=== PATIENT | female | born 1965 | race Caucasian/White ===

== ENCOUNTER 2017-03-19 22:03 | Emergency (ER) | payer OTHER ==
[~2017-03-19 22:03] MED LIST: Iopamidol 370 76% 100 ML VIAL ONE
[2017-03-19] MEDS ORDERED: Ondansetron ODT 4 MG TAB ONE (22:44)
[2017-03-19] MEDS ORDERED: Albuterol Sulfate 2.5 mg/0.5 ml Neb ONE (22:48)
[2017-03-19] MEDS ORDERED: HYDROcodone/Acetaminophen 5/325 mg Tablet ONE (23:14)
--- NOTE | 2017-03-19 23:24 | RAD ---
PA AND LATERAL VIEWS OF THE CHEST 03/19/17 HISTORY: Cough, shortness of breath. FINDINGS: The heart size is normal. The lungs are expanded without focal areas of consolidation, pneumothorax o r pleural effusions. There is increased right paraspinal lucency in the lower chest which may be air in a distended esopha reji or pneumomediastinum. Further evaluation with CT scan is recommended. POS: [facility]
[2017-03-20] MEDS ORDERED: Albuterol Sulfate 2.5 mg/0.5 ml Neb ONE (00:58)
[2017-03-20 01:13] LABS: Anion Gap 16 mmol/L (10-20); Calc. Creatinine Clearance 0 mL/min (70-130); Calcium 9.5 mg/dL (7.8-10.44); Carbon Dioxide 25 mmol/L (22-29); Chloride 103 mmol/L (98-107); Estimated GFR-MDRD 70; Glucose 137 mg/dL (70-105); Potassium 3.5 mmol/L (3.5-5.1); Sodium 140 mmol/L (136-145)
[2017-03-20 01:25] LABS: BUN (Urea Nitrogen) 12 mg/dL (7.0-18.7)
--- NOTE | 2017-03-20 09:33 | CT ---
PRELIMINARY REPORT/[facility]/EMERGENCY AFTER HOURS PROCEDURE: EXAM: CT Chest With Intravenous Contrast CLINICAL HISTORY: 51 years old, female; Signs and symptoms; Cough and fever; Symptoms not specified; Patient HX: Flu, c ough, fever, abnormal cxr; Additional info: unable to send xray images, however xray report was faxed TECHNIQUE: Axial computed tomography images of the chest with intravenous contrast. All CT scans at this facilit y use one or more dose reduction techniques, viz.: automated exposure control; ma/kV adjustment per p atient size (including targeted exams where dose is matched to indication; i.e. head); or iterative r econstruction technique. Coronal reformatted images were created and reviewed. CONTRAST: 90 mL of [id number] administered intravenously. COMPARISON: No relevant prior studies available. FINDINGS: Lungs: There is a small airspace opacity of the right middle lobe. There is linear-like opacity of th e left lower lobe. These are probably atelectasis. Cannot exclude pneumonia. Pleural space: Unremarkable. No pneumothorax. No significant effusion. Heart: Unremarkable. No cardiomegaly. No significant pericardial effusion. Bones/joints: Unremarkable. No acute fracture. No dislocation. Soft tissues: Unremarkable. Vasculature: Unremarkable. No thoracic aortic aneurysm. Lymph nodes: Unremarkable. No enlarged lymph nodes. IMPRESSION: Air space opacity of the right middle lobe and linear-like opacity of the left lower lobe. Cannot exc lude pneumonia. Thank you for allowing us to participate in the care of your patient. Dictated and Authenticated by: Kylah Guzmán DO 03/20/2017 1:25 AM Central Time ([place] & [place]) FINAL REPORT EMERGENT AFTER HOURS CT OF THE CHEST WITH CONTRAST: FINDINGS/IMPRESSION: I agree with the findings and impression given in the preliminary report per [facility] physician. There is airspace opacity in the right middle lobe and left lower lobe. This may represent atelectasis or infiltrate. POS: [facility]
== END 2017-03-20 01:45 | disposition home or self-care (01) ==
LOC: SCSER 22:03
DX: J45.909 Unspecified asthma, uncomplicated (principal); J98.11 Atelectasis; R11.2 Nausea with vomiting, unspecified; F32.9 Major depressive disorder, single episode, unspecified; E78.00 Pure hypercholesterolemia, unspecified
CPT/HCPCS: 71046; 71260; 80048; 94640; J7611; Q0162

== ENCOUNTER 2017-03-22 03:09 | Emergency (ER) | payer OTHER ==
[2017-03-22] MEDS ORDERED: Metoclopramide HCl 10 MG/2 ML VIAL ONE (03:38)
[2017-03-22] MEDS ORDERED: Ketorolac Tromethamine 30 MG/ML VIAL ONE (03:38)
[2017-03-22] MEDS ORDERED: diphenhydrAMINE 50 MG/ML VIAL ONE ×2 (03:38→05:31)
[2017-03-22] MEDS ORDERED: methylPREDNISolone Sod Succ/PF 125 MG/2 ML VIAL ONE (03:38)
[2017-03-22] MEDS ORDERED: Magnesium Sulfate 2 GM/NS 0.9% 50 ML BAG ONE (05:31)
== END 2017-03-22 06:55 | disposition home or self-care (01) ==
LOC: SCSER 03:09
DX: R51 Headache (principal); J45.909 Unspecified asthma, uncomplicated; F32.9 Major depressive disorder, single episode, unspecified; Z79.899 Other long term (current) drug therapy
CPT/HCPCS: 96365; 96366; 96367; 96375; 96376; J1200; J1885; J2765; J2930; J3475

== ENCOUNTER 2017-12-08 14:34 | Outpatient (CLI) | payer OTHER ==
[2017-12-08 15:14] LABS: Bilirubin Negative (Negative); Blood, Urine Moderate (Negative); Clarity Cloudy (Clear); Glucose, Urine (Dipstick) Negative (Negative); Leukocyte Negative (Negative); Nitrite Negative (Negative); Protein, Urine (Dipstick) Negative (Neg-Trace); Urobilinogen 0.2 mg/dL (0.2-1.0); pH, Urine 5.5 (5.0-9.0)
[2017-12-08 15:15] LABS: Anion Gap 12 mmol/L (10-20); BUN (Urea Nitrogen) 13 mg/dL (9.8-20.1); Calc. Creatinine Clearance 0 mL/min (70-130); Calcium 9.1 mg/dL (7.8-10.44); Carbon Dioxide 26 mmol/L (22-29); Chloride 102 mmol/L (98-107); Estimated GFR-MDRD 71; Glucose 85 mg/dL (70-105); Potassium 4.5 mmol/L (3.5-5.1); Sodium 135 mmol/L (136-145)
[2017-12-08 15:35] LABS: Specific Gravity, Urine 1.024 (1.002-1.036)
[2017-12-08 15:38] LABS: Bacteria/HPF 1+ HPF (None Seen); RBC/HPF 0-3 HPF (0-3); WBC/HPF 0-3 HPF (0-3)
--- NOTE | 2017-12-08 17:56 | MMO ---
BILATERAL SCREENING MAMMOGRAM: 12/08/17 COMPARISON: 11/20/15, 12/30/10 HISTORY: 52-year-old female. Routine screening mammography. TECHNIQUE: CC and MLO views of both breasts are submitted for interpretation. This patient's mammogram is reviewed with the assistance of computer hardware developer detection. FINDINGS: The breasts are composed of heterogeneously dense fibroglandular tissue. This limits the sensitivity of mammography and the detection of underlying malignancy. Bilaterally, no suspicious dominant mass, architectural distortion or suspicious calcification. Bilat eral benign appearing calcifications are noted. IMPRESSION: BIRADS 2: Benign Finding(s) RECOMMENDATION: Routine annual screening mammography (for women over age 40). POS: [facility]
== END 2017-12-08 14:35 | disposition home or self-care (01) ==
LOC: SCSMAMMO 14:34
PROVIDERS: ATTEND Internal Medicine
DX: Z12.31 Encounter for screening mammogram for malignant neoplasm of breast (principal); R31.29 Other microscopic hematuria
CPT/HCPCS: 36415; 77067; 80048; 81001

== ENCOUNTER 2018-08-02 00:47 | Emergency (ER) | payer OTHER ==
--- NOTE | 2018-08-02 08:06 | RAD ---
RIGHT KNEE 4 VIEWS: HISTORY: Injury, right knee pain. FINDINGS/IMPRESSION: No acute fracture or dislocation is seen. There is soft tissue swelling in the suprapatellar pouch s uspicious for a joint effusion. POS: [facility]
== END 2018-08-02 01:33 | disposition home or self-care (01) ==
LOC: ERS 00:47
DX: M25.561 Pain in right knee (principal); E78.00 Pure hypercholesterolemia, unspecified; J45.909 Unspecified asthma, uncomplicated; F32.9 Major depressive disorder, single episode, unspecified

== ENCOUNTER 2018-08-23 01:42 | Emergency (ER) | payer OTHER ==
--- NOTE | 2018-08-23 09:24 | RAD ---
FOUR VIEWS RIGHT KNEE: COMPARISON: 08/02/2018.. HISTORY: Right knee pain after falling. FINDINGS: Four views right knee show no evidence of acute fracture or dislocation. No knee effusion is seen. No significant degenerative changes are seen. IMPRESSION: Unremarkable exam. POS: [facility]
--- NOTE | 2018-08-23 09:26 | RAD ---
THREE VIEWS RIGHT ANKLE: HISTORY: Fall with right ankle pain. FINDINGS: Three views right ankle show no evidence of acute fracture or dislocation. Mild soft tissue swelling is seen. No degenerative changes are present. IMPRESSION: No evidence of acute osseous abnormality. POS: [facility]
== END 2018-08-23 02:25 | disposition home or self-care (01) ==
LOC: ERS 01:42
DX: M25.561 Pain in right knee (principal); E78.00 Pure hypercholesterolemia, unspecified; J45.909 Unspecified asthma, uncomplicated; F32.9 Major depressive disorder, single episode, unspecified; Z79.899 Other long term (current) drug therapy; W19.XXXA Unspecified fall, initial encounter

== ENCOUNTER 2019-03-24 15:39 | Observation (INO) | payer BC ==
--- NOTE | 2019-03-24 16:18 | RAD ---
XR Chest 1 View Portable HISTORY: Syncope COMPARISON: None FINDINGS: The heart size is normal. The lungs are well expanded without focal areas of consolidation, pneumothorax or pleural effusions. IMPRESSION: No radiographic evidence of acute cardiopulmonary process.
[2019-03-24 16:24] LABS: #Basophils 0.1 thou/uL (0.0-0.2); #Eosinphils 0.9 thou/uL (0.0-0.7); #Lymphocytes 2.6 thou/uL (1.20-3.40); #Monocytes 0.7 thou/uL (0.11-0.59); #Neutrophils 6.9 thou/uL (1.40-6.50); %Basophils 1.1 % (0.0-1.0); %Eosinophils 8.1 % (0.0-10.0); %Monocytes 6.2 % (0.0-10.0); %Neutrophils 61.5 % (42.0-75.0); Hemoglobin 13.6 g/dL (12.0-16.0); Mean Corpuscular HGB CONC 32.5 g/dL (32.0-36.0); Mean Corpuscular Volume 89.4 fL (78.0-98.0); Mean Platelet Volume 8.9 fL (7.4-10.4); Platelet Count 278 thou/uL (130-400); RBC Distribution Width 14.4 % (11.5-14.5); Red Blood Cell (RBC) Count 4.68 mill/uL (4.20-5.40); White Blood Cell (WBC) Count 11.2 thou/uL (4.8-10.8)
--- NOTE | 2019-03-24 16:26 | CT ---
CT BRAIN WITHOUT CONTRAST: HISTORY: Altered mental status FINDINGS: No evidence of acute infarct, hemorrhage, midline shift or abnormal extra-axial fluid collections is seen. The ventricular size is appropriate and the basilar cisterns are patent. The bony calvarium is intact. The visualized paranasal sinuses and mastoid air cells are well aerated. IMPRESSION: No CT evidence of acute intracranial process.
[2019-03-24 16:49] LABS: ALT (SGPT) 12 U/L (8-55); AST (SGOT) 17 U/L (5-34); Albumin 4.2 g/dL (3.5-5.0); Alkaline Phosphatase 102 U/L (40-110); Anion Gap 12 mmol/L (10-20); BUN (Urea Nitrogen) 9 mg/dL (9.8-20.1); Bilirubin, Total 0.4 mg/dL (0.2-1.2); Calc. Creatinine Clearance 0 mL/min (70-130); Carbon Dioxide 25 mmol/L (22-29); Chloride 105 mmol/L (98-107); Estimated GFR-MDRD 68; Globulin 2.5 g/dL (2.4-3.5); Glucose 92 mg/dL (70-105); Protein, Total 6.7 g/dL (6.0-8.3); Sodium 138 mmol/L (136-145)
[2019-03-24 17:21] LABS: Bilirubin Negative (Negative); Blood, Urine Negative (Negative); Clarity Clear (Clear); Glucose, Urine (Dipstick) Normal (Negative); Leukocyte Negative Leu/uL (Negative); Nitrite Negative (Negative); Protein, Urine (Dipstick) Negative (Neg-Trace); Urobilinogen Normal mg/dL (Less than 2)
[2019-03-24 17:26] LABS: Amphetamine Not Detected (NotDetected); Barbiturates Screen Not Detected (NotDetected); Benzodiazepine Screen Detected (NotDetected); Cocaine Metabolite Screen Not Detected (NotDetected); Medtox Control Line Valid? VALID (VALID); Medtox Reader # READER 4; Methadone Not Detected (NotDetected); Methamphetamine Not Detected (NotDetected); Opiate Screen Not Detected (NotDetected); Oxycodone Screen Not Detected (NotDetected); Phencyclidine (PCP) Not Detected (NotDetected); THC/Cannabinoid Screen Not Detected (NotDetected); Tricyclic Screen Detected (NotDetected)
[2019-03-24] MEDS ORDERED: Albuterol Sulfate 2.5 mg/3 ml Neb ONE (19:53)
--- NOTE | 2019-03-24 19:57 | PDOC.HHP ---
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 No prodrome. Was sitting. Denies palpitations, chest pain, shortness of breath, bowel/ bladder incontinence, witnessed episode but unreliable source was witness (her patient) and no epileptiform activity reported, length of episode unknown. Denies new meds but med list reviewed and on temazepam for sleep, no recent additions of meds or dose changes, denies drug use, recently took up smoking 3 months ago and cant explain why. She was confused after the episode and still reports not quite back to baseline but very close, confirms this at bedside. Patient saw Dr Griggs of cardiology a long time ago and cannot remember why, byut remembers she had an echo with mild MR. She sees Dr Simons for migraines, no headaches today. She had an MRI 5 years ago and reports nothing highly unusual on that study as far as she is aware. She denies unilateral weakness, numbness, facial droop. EKG NSR, CT head and CXR without acute findings. ED Course: VITAL SIGNS Aida Mar 24, 2019 15:55 ARMANDO Grimes, Coby BP: 113/81, MAP: 91, Pulse: 88, Resp: 22, Temp: 98.6 (Oral), O2 Sat: 92 on ( Room Air) Home meds Effexor TABLET : Strength - 100 mg : ORAL Patient Dose: 150 mg Oral once a day. ZyrTEC CAPSULE : Strength - 10 mg : ORAL Patient Dose: 10 mg Oral once a day. Lipitor TABLET : Strength - 40 mg : ORAL Patient Dose: 40 mg Oral once a day. SEROquel TABLET : Strength - 25 mg : ORAL Patient Dose: 300. Lyrica CAPSULE : Strength - 200 mg : ORAL Patient Dose: 200 mg Oral 2 times a day. temazepam CAPSULE : Strength - 30 mg : ORAL Patient Dose: 30 mg Oral As Needed. EKG reviewed, NSR, 85 BPM, no STEMI Hospitalist ROS - Review of Systems Constitutional: denies: fever, chills, sweats, weakness, malaise, other Eyes: denies: pain, vision change, conjunctivae inflammation, eyelid inflammation, redness, other ENT: denies: ear pain, ear discharge, nose pain, nose discharge, nose congestion , mouth pain, mouth swelling, throat pain, throat swelling, other Respiratory: denies: cough, dry, shortness of breath, hemoptysis, SOB with excertion, pleuritic pain, sputum, wheezing, other Cardiovascular: denies: chest pain, palpitations, orthopnea, paroxysmal noc. dyspnea, edema, light headedness, other Gastrointestinal: denies: nausea, vomiting, abdominal pain, diarrhea, constipation, melena, hematochezia, other Genitourinary: denies: dysuria, frequency, incontinence, hematuria, retention, other Musculoskeletal: denies: neck pain, shoulder pain, arm pain, back pain, hand pain, leg pain, foot pain, other Skin: denies: rash, lesions, clarissa, bruising, other Neurological: denies: weakness, numbness, incoordination, change in speech, confusion, seizures, other Other: +syncope All other systems reviewed; all pertinent +/- noted in HPI/Subj - Medication Medications: see hpi Hospitalist History - Past Medical History Other Medical History: Arthritis, HTN, hay fever, cholesterol - Past Surgical History Other Surgical History: Carpal tunnel surgery - Family History Other Family History: Reviewed, no pertinent family history - Social History Other Social History: Drinks weekly, recently started smoking, no drug use reported. - Exam General Appearance: NAD, awake alert Eye: PERRL, anicteric sclera ENT: normocephalic atraumatic, no oropharyngeal lesions, moist mucosa Neck: supple, symmetric, no JVD, no thyromegaly, no lymphadenopathy, no carotid bruit Heart: RRR, no murmur, no gallops, no rubs, normal peripheral pulses Respiratory: CTAB, no wheezes, no rales, no ronchi, normal chest expansion, no tachypnea, normal percussion Gastrointestinal: soft, non-tender, non-distended, normal bowel sounds, no palpable masses, no hepatomegaly, no splenomegaly, no bruit Extremities: no cyanosis, no clubbing, no edema Skin: normal turgor, no lesions, no rashes Neurological: cranial nerve grossly intact, normal sensation to touch, no weakness, no focal deficits, no new deficit Musculoskeletal: normal tone, normal strength, no muscle wasting Psychiatric: normal affect, normal behavior, A&O x 3 Hospitalist Results - Labs Result Diagrams: 03/24/19 16:14 03/24/19 16:14 Lab results: WBC 11.2 thou/uL (4.8-10.8) H 03/24/19 16:14 Hgb 13.6 g/dL (12.0-16.0) 03/24/19 16:14 Hct 41.8 % (36.0-47.0) 03/24/19 16:14 MCV 89.4 fL (78.0-98.0) 03/24/19 16:14 Plt Count 278 thou/uL (130-400) 03/24/19 16:14 Neutrophils % 61.5 % (42.0-75.0) 03/24/19 16:14 Sodium 138 mmol/L (136-145) 03/24/19 16:14 Potassium 4.0 mmol/L (3.5-5.1) 03/24/19 16:14 Chloride 105 mmol/L (98-107) 03/24/19 16:14 Carbon Dioxide 25 mmol/L (22-29) 03/24/19 16:14 BUN 9 mg/dL (9.8-20.1) L 03/24/19 16:14 Creatinine 0.87 mg/dL (0.6-1.1) 03/24/19 16:14 Glucose 92 mg/dL (70-105) 03/24/19 16:14 Calcium 9.0 mg/dL (7.8-10.44) 03/24/19 16:14 Total Bilirubin 0.4 mg/dL (0.2-1.2) 03/24/19 16:14 AST 17 U/L (5-34) 03/24/19 16:14 ALT 12 U/L (8-55) 03/24/19 16:14 Alkaline Phosphatase 102 U/L (40-110) 03/24/19 16:14 Troponin I Less than 0.010 ng/mL (< 0.028) 03/24/19 16:14 Serum Total Protein 6.7 g/dL (6.0-8.3) 03/24/19 16:14 Albumin 4.2 g/dL (3.5-5.0) 03/24/19 16:14 Urine Ketones Negative mg/dL (Negative) 03/24/19 17:02 Urine Blood Negative (Negative) 03/24/19 17:02 Urine Nitrite Negative (Negative) 03/24/19 17:02 Ur Leukocyte Esterase Negative Ann/uL (Negative) 03/24/19 17:02 - EKG Interpretation EKG: NSR 85 bpm see HPI Hospitalist H&P A/P - Plan Plan: 53F admitted for: # syncope - no prodrome, had 1 episode before which was different (previous episode sounds vasovagal), this episode concerning for cardiac etiology and much less likely seizure. - admit to telemetry' - voice and data technician, trend troponin - orthostatics - echo - carotid duplex - can discuss case and any positive findings of initial workup with Caden Griggs and Kristyn (patient has seen both as outpatient) in AM. - no recent med changes but started smoking for no reason 3 months ago, counselled cessation - consider d/c benzodiazdepine if becomes recurring problem
[2019-03-24] MEDS ORDERED: Aspirin Chewable 81 MG TAB ONE (20:11)
[2019-03-24] MEDS ORDERED: Bisacodyl 5 MG TAB PO PRN (20:25)
[2019-03-24] MEDS ORDERED: Bisacodyl 10 MG SUPP PR PRN (20:25)
[2019-03-24] MEDS ORDERED: Acetaminophen 325 MG TAB PO PRN (20:25)
[2019-03-24] MEDS ORDERED: Promethazine HCl 12.5 MG in Sodium Chloride 0.9% 50 ML IVPB PRN (20:30)
[2019-03-24] MEDS ORDERED: cloNIDine 0.1 MG TAB PO PRN (20:30)
[2019-03-24] MEDS ORDERED: hydrALAZINE 20 MG/ML VIAL SLOW IVP PRN (20:30)
[2019-03-24] MEDS ORDERED: Ondansetron PF 4 MG/2 ML Vial IVP PRN (20:30)
[2019-03-24 22:43] VITALS: BMI 32.1
[2019-03-24 23:00] LABS: Pregnancy Test - Urine (BHCG) Negative (Negative); Pregu Control Background? CLEAR/WHITE (CLR/WHITE); Pregu Control Bar Appear? YES (CONTROL BAR); Specific Gravity 1.007 (1.002-1.036)
[2019-03-24] MEDS ORDERED: Temazepam 15 MG CAP PO SCH (23:15)
[2019-03-24] MEDS ORDERED: Atorvastatin Calcium 40 MG TAB PO SCH (23:15)
[2019-03-25 04:53] LABS: #Basophils 0.1 thou/uL (0.0-0.2); #Eosinphils 0.9 thou/uL (0.0-0.7); #Lymphocytes 2.9 thou/uL (1.20-3.40); #Monocytes 0.9 thou/uL (0.11-0.59); #Neutrophils 4.5 thou/uL (1.40-6.50); %Basophils 1.4 % (0.0-1.0); %Eosinophils 9.4 % (0.0-10.0); %Lymphocytes 31.3 % (21.0-51.0); %Monocytes 9.3 % (0.0-10.0); %Neutrophils 48.6 % (42.0-75.0); Hemoglobin 13.6 g/dL (12.0-16.0); Mean Corpuscular HGB CONC 33.1 g/dL (32.0-36.0); Mean Corpuscular Hemoglobin 29.8 pg (27.0-31.0); Mean Corpuscular Volume 89.9 fL (78.0-98.0); Mean Platelet Volume 8.7 fL (7.4-10.4); Platelet Count 267 thou/uL (130-400); RBC Distribution Width 14.4 % (11.5-14.5); Red Blood Cell (RBC) Count 4.58 mill/uL (4.20-5.40); White Blood Cell (WBC) Count 9.2 thou/uL (4.8-10.8)
[2019-03-25 05:10] LABS: ALT (SGPT) 9 U/L (8-55); AST (SGOT) 18 U/L (5-34); Albumin 3.8 g/dL (3.5-5.0); Alkaline Phosphatase 95 U/L (40-110); Anion Gap 8 mmol/L (10-20); BUN (Urea Nitrogen) 12 mg/dL (9.8-20.1); Bilirubin, Total 0.4 mg/dL (0.2-1.2); Calc. Creatinine Clearance 116 mL/min (70-130); Calcium 8.5 mg/dL (7.8-10.44); Carbon Dioxide 28 mmol/L (22-29); Chloride 107 mmol/L (98-107); Estimated GFR-MDRD 74; Globulin 2.2 g/dL (2.4-3.5); Glucose 115 mg/dL (70-105); Potassium 3.8 mmol/L (3.5-5.1); Sodium 139 mmol/L (136-145)
[2019-03-25 05:14] LABS: Troponin I Less than 0.010 ng/mL (< 0.028)
--- NOTE | 2019-03-25 07:56 | ULT ---
BILATERAL CAROTID DUPLEX ULTRASOUND: HISTORY: Syncope TECHNIQUE: Grayscale, color-flow and spectral Doppler ultrasound imaging of the extracranial carotid artery syst ems was performed bilaterally. FINDINGS: No significant plaque formation or intimal wall thickening is seen on either side. The peak systolic velocity in the right ICA measures 72 cm/s with an end-diastolic velocity of 31 cm/ s and a systolic ratio of 0.82. The peak systolic velocity in the left ICA measures 89 cm/s with an end-diastolic velocity of 33 cm/s and a systolic ratio of 1.06. Flow in both vertebral arteries remains antegrade. IMPRESSION: No evidence of hemodynamically significant stenosis.
[2019-03-25] MEDS ORDERED: Enoxaparin Sodium 40 MG/0.4 ML SYRINGE SC SCH (09:00)
[2019-03-25 10:27] LABS: Troponin I Less than 0.010 ng/mL (< 0.028)
[2019-03-25] MEDS ORDERED: SUMAtriptan Succinate 50 MG TAB PO PRN (10:46)
--- NOTE | 2019-03-25 15:18 | PDOC.HOSPP ---
- Subjective Encounter Date: 03/25/19 Encounter Time: 09:30 Subjective: Patient seen and examined. No new complaints. No overnight events - Objective Vital Signs & Weight: Vital Signs (12 hours) Temp Pulse Resp BP Pulse Ox 03/25/19 11:00 98.1 F 66 16 141/85 H 96 03/25/19 07:00 97.9 F 65 16 140/76 97 Weight Weight 199 lb 8 oz I&O: 03/24/19 03/25/19 03/26/19 06:59 06:59 06:59 Intake Total 240 Balance 240 Result Diagrams: 03/25/19 04:41 03/25/19 04:41 Radiology Reviewed by me: Yes (CXR - negative, Carotid - neg) EKG Reviewed by me: Yes (Tele SR) Hospitalist ROS - Review of Systems Respiratory: denies: cough, dry, shortness of breath, hemoptysis, SOB with excertion, pleuritic pain, sputum, wheezing, other Cardiovascular: denies: chest pain, palpitations, orthopnea, paroxysmal noc. dyspnea, edema, light headedness, other Gastrointestinal: denies: nausea, vomiting, abdominal pain, diarrhea, constipation, melena, hematochezia, other - Medication Medications: Active Medications Generic Name Dose Route Start Last Admin Trade Name Freq PRN Reason Stop Dose Admin Pantoprazole Sodium 40 mg 03/25/19 09:00 03/25/19 08:51 Protonix PO 40 mg DAILY GARLAND Administration - Exam General Appearance: NAD Neck: supple, no JVD Heart: RRR, no gallops, no rubs Respiratory: no wheezes, no rales, no ronchi Gastrointestinal: non-tender, non-distended, normal bowel sounds Extremities: no edema Neurological: no new deficit Psychiatric: normal affect, A&O x 3 Hosp A/P - Plan DVT proph w/lovenox, DVT proph w/SCDs Syncope ?Cardiogenic Obesity BMI 32.2 Anxiety HLD PLAN: Cont ASA Cont Statins Carotid negative Await Echo Cardio/Neuro consult pending Cont Tele monitoring Resume home meds
[2019-03-25] MEDS: Pregabalin 50 MG CAP PO SCH (20:46)
[2019-03-25] MEDS ORDERED: Temazepam 15 MG CAP PO SCH (21:00)
[2019-03-25] MEDS ORDERED: Acyclovir 400 mg Tablet PO SCH (21:00)
[2019-03-25] MEDS ORDERED: Aspirin 81 mg Enteric Coated Tablet PO SCH (21:00)
[2019-03-25] MEDS ORDERED: Atorvastatin Calcium 40 MG TAB PO SCH (21:00)
--- NOTE | 2019-03-25 22:39 | CON ---
DATE OF CONSULTATION: PRIMARY HANDLE TURNER: Aracelis Norris MD REFERRING DOCTORS: To doctors. REASON FOR CARDIOLOGY CONSULT: Status post syncopal episode. HISTORY OF PRESENT ILLNESS: Ms. Tena is a very present 53-year-old female with significant history of anxiety, depression, asthma, and current smoker. She was doing relatively well until yesterday around 2 p.m. 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 Yesterday around 2 p.m., when she was with the patient giving education about the patient's medication while she was sitting on the sofa, suddenly she lost conscious. According to the patient, she could not wake up until the EMS arrived and started hooking up to the EKG machine. According to the patient's , she was still confused when she was at the ER. The patient's reported that she did not have any breakfast or lunch except at least three 16 ounces on Monster and a bunch of peppermint yesterday prior to this event. At this moment, the patient denies any chest pain, heaviness, tightness, shortness of breath, or any cardiac complaints. She had echocardiogram in the hospital. She was told she has mild mitral valve regurgitation. She drinks at least 3 to 5 Monster a day. She started smoking about three months ago and she currently smokes half pack to one pack a day. PAST MEDICAL HISTORY: Arthritis to bilateral hands, hay fever, hyperlipidemia, asthma, and current smoker. PAST SURGICAL HISTORY: Bilateral carpal tunnel surgery in 2003. FAMILY HISTORY: The patient's mother had a history of hypertension. SOCIAL HISTORY: The patient is . She does not have children. 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 She drinks at least 3 to 5 Monster a day, but she does not drink much fluid besides that. She denies EtOH or drug abuse. She does not exercise. ALLERGIES: SHE IS ALLERGIC TO SULFA AND TOPIRAMATE. MEDICATIONS: 1. Pregabalin 100 mg twice a day. 2. Temazepam 30 mg at night. 3. Atorvastatin 40 mg once a day. 4. Imitrex 100 mg daily as needed. 5. Venlafaxine 150 mg capsule daily. 6. Seroquel 600 mg at night. 7. Acyclovir 400 mg twice a day. 8. She takes diuretic 10 mg once a day. 9. Effexor 150 mg once a day. 10. She is to have inhaler in her room at this moment. REVIEW OF SYSTEMS: 12-point review of systems is negative unless otherwise mentioned in the HPI. The patient's last episode of migraine was one week ago. She usually has pain at the frontal area and behind bilateral eyes, but she never had a near syncopal episode with the symptom. PHYSICAL EXAMINATION: VITAL SIGNS: Blood pressure 133/88, temperature 98.0, pulse is 65, respiratory rate 16, O2 saturation 97% on room air, and the patient's orthostatic blood pressure supine 132/77, sitting 121/82, and standing 119/81. GENERAL: The patient is alert and oriented x4, not in acute distress. HEENT: Head is normocephalic and atraumatic. Eyes; extraocular muscle movement intact. The patient wears glasses. ENT and mouth; oral and nasal mucosa moist without lesion. NECK: Supple. Normal range of motion. No JVD. RESPIRATORY: Clear to auscultate bilaterally. No wheezing, rales, or rhonchi noted. CARDIOVASCULAR: Regular rate and rhythm. Normal S1 and S2. There is no S3 or S4. No significant murmur, hives, or thrill noted. 2+ pulses in bilateral upper and lower extremities. No edema in the extremities. ABDOMEN: Soft, nontender. No mass to palpate. Bowel sounds are present. SKIN: Warm and dry. No lesion, rash, or erythema noted. MUSCULOSKELETAL: The patient able to move all extremities without difficulty. The patient denied claudication. The patient's carotid pulses are present without bruit or thrill. NEUROLOGIC: The patient is alert and oriented x4. Nonfocal. PSYCHIATRIC: The patient's mood is appropriate. LABORATORY DATA: WBC 9.2, hemoglobin 13.6, hematocrit 41.2, platelet 267. Sodium 139, potassium 3.8, BUN 12, creatinine 0.81, glucose 115, calcium 8.5, magnesium 1.9, AST 18, ALT 9. Troponin is negative x3. Albumin 3.8. Urine sample is negative. TSH in [address] scan shows no acute intracranial process. Chest x-ray shows no acute cardiopulmonary process, and carotid Doppler study shows no evidence of significant stenosis. ASSESSMENT AND PLAN: 1. Status post syncopal episode, possible due to the dehydration or no food with current smoking. She does not have any syncopal episode since previous episode. She had echocardiogram done today and result is pending at this moment. If everything is negative, the patient might able to discharge from hospital by tonight or tomorrow with Holter monitor, which might be mailed to her current address and follow up with women's swim coach as outpatient. 2. Hyperlipidemia. The patient is on atorvastatin 40 mg once a day. 3. Migraine, which is stable with Lyrica according to the patient. 4. Anxiety and depression. The patient is willing to start exercise. The patient is also willing to decrease the caffeine intake. 5. Current smoker. The patient is willing to start smoking cessation. Thank you very much for Cardiology Service to participate in the care of this patient. We will follow along the patient's care team and make further recommendations as appropriate. Job ID: [id number] [id number]
--- NOTE | 2019-03-26 01:50 | CON ---
DATE OF CONSULTATION: 03/25/2019 INDICATION FOR CONSULTATION: A 53-year-old female with syncopal episode of undetermined etiology. 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 At this time, she remains stable and has had what she describes as being some earlier syncopal episodes. Several years ago, she has had two other episodes some time back, but had no forewarning at those times either. This time, she said she was out probably for a good 10 minutes prior to the ambulance being there. She has had no significant arrhythmias since being on the monitor here. Has had no history of chest pain. She has no cardiac history that she is aware of. She has remained stable. She does drink increased amounts of caffeine during the day, but did not complain of any tachycardia. Her EKG is unremarkable. No evidence of ischemia. Heart rates in the 70s. PAST MEDICAL HISTORY: Please refer the notes dictated by the nurse practitioner. SOCIAL HISTORY: Please refer to the notes dictated by the nurse practitioner. FAMILY HISTORY: Please refer to the notes dictated by the nurse practitioner. MEDICATIONS: Please refer to the notes dictated by the nurse practitioner. REVIEW OF SYSTEMS: Please refer to the notes dictated by the nurse practitioner. ALLERGIES: PLEASE REFER TO THE NOTES DICTATED BY THE NURSE PRACTITIONER. PHYSICAL EXAMINATION: GENERAL: Reveals a well-developed, well-nourished female, in no acute distress. She is alert. She is oriented. VITAL SIGNS: Blood pressure 145/85, heart rate 60 to 70 and shows normal sinus rhythm, respiratory rate is 18, and O2 saturation 94%. She is afebrile. HEENT: Shows head to be normocephalic and atraumatic. Carotid pulses are present. There are no bruits. CHEST: Clear to auscultation without rales, rhonchi, or wheezing. CARDIOVASCULAR: Reveals regular rate and rhythm at this time. There were no significant murmurs, heaves, thrills, bruits, or rubs. Otherwise unremarkable. ABDOMEN: Abdominal exam is also unremarkable. Positive bowel sounds are present. No organomegaly or masses noted. Femoral pulses are present. EXTREMITIES: Showed no clubbing, cyanosis, or edema. NEUROLOGIC: She appears to be fully intact at this time. LABORATORY DATA: Shows a WBC of 9.2, hemoglobin 13.6, platelet count 267,000. Her potassium is 3.8, BUN was 12, with a creatinine of 0.81. Blood sugar was 115. Troponin I was negative. She has no other significant abnormalities in the laboratory data. IMPRESSION: This is a 53-year-old female with episode of syncope. We will continue to monitor her overnight. If there are no significant abnormalities noted, she could be discharged to home with an event monitor. If there is still no evidence of any abnormalities after 2 to 4 weeks on monitor, would suggest she undergo implantation of LINQ to rule out evidence of any significant arrhythmias or pauses. Also, would advise her to undergo some type of stress testing in the future. However, she has not had any complaints of chest pain or discomfort just for completion of the workup for evaluation of any possible evidence of ischemia certainly involving the right coronary artery that may have caused a pause. Also watch for any evidence of arrhythmias that may have caused this episode. I have discussed the patient with the nurse practitioner, Yahaira Victoria, and I would agree with present medication management with the patient. We will continue to follow her echocardiogram, also will be evaluated. I believe it was already read. Actually, the echocardiogram shows ejection fraction of 55% to 60% with otherwise normal echocardiogram. Job ID: [id number]
[2019-03-26] MEDS: Pregabalin 50 MG CAP PO SCH (08:45)
[2019-03-26] MEDS ORDERED: Venlafaxine HCl XR 150 MG CAP PO SCH (09:00)
--- NOTE | 2019-03-26 09:33 | PDOC.HOSPP ---
- Subjective Encounter Date: 03/26/19 Encounter Time: 09:31 Subjective: Patient seen and examined for syncope. No new syncope/seizure. No new complaints. No overnight events - Objective Vital Signs & Weight: Vital Signs (12 hours) Temp Pulse Resp BP BP Pulse Ox 03/26/19 07:12 97.7 F 65 16 114/76 96 03/26/19 03:47 97.5 F L 66 18 100/65 96 03/25/19 23:44 97.6 F 85 16 116/73 93 L Weight Weight 199 lb 8 oz I&O: 03/25/19 03/26/19 03/27/19 06:59 06:59 06:59 Intake Total 480 Balance 480 Result Diagrams: 03/25/19 04:41 03/25/19 04:41 EKG Reviewed by me: Yes (Tele SR) Hospitalist ROS - Review of Systems Respiratory: denies: cough, dry, shortness of breath, hemoptysis, SOB with excertion, pleuritic pain, sputum, wheezing, other Cardiovascular: denies: chest pain, palpitations, orthopnea, paroxysmal noc. dyspnea, edema, light headedness, other Gastrointestinal: denies: nausea, vomiting, abdominal pain, diarrhea, constipation, melena, hematochezia, other - Medication Medications: Active Medications Generic Name Dose Route Start Last Admin Trade Name Freq PRN Reason Stop Dose Admin Acetaminophen 650 mg 03/24/19 20:25 03/25/19 20:46 Tylenol PO 650 mg Q4H PRN Administration Headache/Fever/Mild Pain (1-3) Aspirin 81 mg 03/25/19 21:00 03/25/19 20:48 Ecotrin PO 81 mg HS [place] Administration Atorvastatin Calcium 40 mg 03/25/19 21:00 03/25/19 20:46 Lipitor PO 40 mg HS [place] Administration Pantoprazole Sodium 40 mg 03/25/19 09:00 03/26/19 08:45 Protonix PO 40 mg DAILY [place] Administration Pregabalin 200 mg 03/25/19 21:00 03/26/19 08:45 Lyrica PO 200 mg BID [place] Administration Quetiapine Fumarate 600 mg 03/25/19 21:00 03/25/19 20:48 Seroquel PO 600 mg HS [place] Administration Sodium Chloride 10 ml 03/25/19 10:45 03/25/19 20:48 Flush - Normal Saline IVF 10 ml PRN PRN Administration Saline Flush Temazepam 30 mg 03/25/19 21:00 03/25/19 20:46 Restoril PO 30 mg HS [place] Administration Venlafaxine HCl 150 mg 03/26/19 09:00 03/26/19 08:45 Effexor Xr PO 150 mg DAILY [place] Administration - Exam General Appearance: NAD Neck: supple, no JVD Heart: RRR, no gallops Respiratory: no wheezes, no rales Gastrointestinal: non-tender, non-distended Extremities: no cyanosis, no edema Hosp A/P - Plan DVT proph w/SCDs Syncope ?Cardiogenic Obesity BMI 32.2 Anxiety HLD PLAN: Cont ASA/Statins Carotid - negative Echo - normal EF Cardio input appreciated Await Neuro input Cont current meds DC home later today after event monitor
--- NOTE | 2019-03-26 11:02 | PDOC.CPN ---
- Subjective Date: 03/26/19 Time: 11:07 Interval history: The pt seen and examined. No overnight events. No cardiac complaints. - Objective Allergies/Adverse Reactions: Allergies Allergy/AdvReac Type Severity Reaction Status Date / Time Sulfa (Sulfonamide Allergy Verified 03/24/19 21:31 Antibiotics) topiramate [From Topamax] Allergy Verified 03/24/19 22:25 Visit Medications: Current Medications Acetaminophen (Tylenol) 650 mg PO Q4H PRN PRN Reason: Headache/Fever/Mild Pain (1-3) Last Admin: 03/25/19 20:46 Dose: 650 mg Aspirin (Ecotrin) 81 mg PO [facility] Last Admin: 03/25/19 20:48 Dose: 81 mg Atorvastatin Calcium (Lipitor) 40 mg PO [facility] Last Admin: 03/25/19 20:46 Dose: 40 mg Bisacodyl (Dulcolax) 10 mg PO DAILYPRN PRN PRN Reason: Constipation Bisacodyl (Dulcolax) 10 mg ID DAILYPRN PRN PRN Reason: Constipation Clonidine (Catapres) 0.1 mg PO Q4H PRN PRN Reason: SBP > 160 use second Hydralazine HCl (Apresoline) 10 mg SLOW IVP Q6H PRN PRN Reason: SBP GREATER THAN 160 Promethazine HCl 12.5 mg/ (Sodium Chloride) 50.5 mls @ 202 mls/hr IVPB Q6H PRN PRN Reason: Nausea/vomiting use second Ondansetron HCl (Zofran) 4 mg IVP Q6H PRN PRN Reason: Nausea/Vomiting use 1st Pantoprazole Sodium (Protonix) 40 mg PO DAILY [facility] Last Admin: 03/26/19 08:45 Dose: 40 mg Pregabalin (Lyrica) 200 mg PO BID [facility] Last Admin: 03/26/19 08:45 Dose: 200 mg Quetiapine Fumarate (Seroquel) 600 mg PO [facility] Last Admin: 03/25/19 20:48 Dose: 600 mg Sodium Chloride (Flush - Normal Saline) 10 ml IVF PRN PRN PRN Reason: Saline Flush Last Admin: 03/25/19 20:48 Dose: 10 ml Sumatriptan Succinate (Imitrex) 100 mg PO DAILY PRN PRN Reason: Migraine Headache Temazepam (Restoril) 30 mg PO [facility] Last Admin: 03/25/19 20:46 Dose: 30 mg Venlafaxine HCl (Effexor Xr) 150 mg PO DAILY [facility] Last Admin: 03/26/19 08:45 Dose: 150 mg Vital Signs & Weight: Vital Signs Temp Pulse Resp BP BP Pulse Ox 03/26/19 07:12 97.7 F 65 16 114/76 96 03/26/19 03:47 97.5 F L 66 18 100/65 96 03/25/19 23:44 97.6 F 85 16 116/73 93 L Weight 199 lb 8 oz - Physical Exam General: alert & oriented x3 HEENT: mucus membranes moist Neck: supple neck Cardiac: regular rate and rhythm, S1/S2 Lungs: clear to auscultation Extremities: no edema - Labs Result Diagrams: 03/25/19 04:41 03/25/19 04:41 Troponin/CKMB Troponin I Less than 0.010 ng/mL (< 0.028) 03/25/19 09:52 - Telemetry Sinus rhythms and dysrhythmias: sinus rhythm - Assessment/Plan Assessment/Plan: 1. S/p Syncopal episode - no more near syncopal episodes; Will d/c home with 7 day EVR. 2. HLD - on Statin 3. Asthma - stable with RA with PRN breathing treatment 4. Anxiety - strongly recommend caffeine intakes, smoking cessation, and start regular exercise 5. migraine 6. Current smoker - strongly recommend smoking cessation MAR reviewed * Echo on 03/25/2018 with EF 55-60% with normal valve functions. * From Cardiac standpoint, the pt is stable to d/c home with 7-day EVR. The pt will f/u with Dr Norris' office within 2 wks for hospital and EVR result follow up.
--- NOTE | 2019-03-26 11:21 | PRG ---
DATE OF SERVICE: 03/26/2019 Ms. Tena was admitted after having prolonged syncopal episode. 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 When she awoke, she was on the stretcher with the Paramedics. She felt a bit confused following the event. The patient did not report any seizure-like activity. Apparently, she remained in a slumped, but upright position during the episode. She was admitted for further evaluation. Her CT of the brain was negative. Her carotid Doppler and echocardiogram were unremarkable with an ejection fraction of 55% to 60%. She has been seen by Dr. Norris for Cardiology evaluation. They are planning on proceeding with further monitoring for arrhythmia. She did not have a migraine following the event. There is no past history of seizure activity. She had no loss of bladder control or tongue injury secondary to this event. Initial vital signs showed a blood pressure of 145/85, pulse of 60. Laboratory studies including a CBC, chemistry panel, urinalysis, and drug screen were all unremarkable. I suspect that she had a syncopal episode in a sitting position, which made the duration of the symptoms prolonged. She did not have an associated migraine or seizure-like activity. I agree with further cardiac monitoring and I will follow up with her in the office. Job ID: [id number]
[2019-03-26 11:55] VITALS: TEMP 97.5
--- NOTE | 2019-03-26 13:57 | EKG ---
Test Reason : Blood Pressure : / mmHG Vent. Rate : 085 BPM Atrial Rate : 085 BPM P-R Int : 140 ms QRS Dur : 082 ms QT Int : 372 ms P-R-T Axes : 056 -22 028 degrees QTc Int : 442 ms Normal sinus rhythm Low voltage QRS Confirmed by SHANNAN ARDON DO ([id number]), telegraph editor ZONIA HUTCHINSON ([id number]) on 03/26/2019 1:57:16 PM Referred By: Confirmed By:SHANNAN ARDON DO
[2019-03-26 14:54] VITALS: BP 118/80
--- NOTE | 2019-03-27 09:15 | DIS ---
DATE OF ADMISSION: 03/24/2019 DATE OF DISCHARGE: 03/26/2019 DISCHARGE DISPOSITION: Home. FOLLOWUP: 1. Follow up with primary care physician, Dr. Sharon Menjivar in 1 week. 2. Follow up with Cardiology, Dr. Norris, and Neurology, Dr. Simons as scheduled. 3. Event monitor has been arranged by Dr. Norris. DISCHARGE MEDICATIONS: Same as admission medications. BRIEF HOSPITAL COURSE: The patient is a 53-year-old female, who presented to the emergency room with a syncopal episode. Please refer to the history and physical dated March 24, [address] Aguilera for further details. The patient was admitted to the hospital with a diagnosis of syncope of unclear etiology, suspected cardiogenic. She was monitored on telemetry. Echocardiogram was obtained that showed ejection fraction of 55% to 60%. Carotid Doppler was negative for hemodynamically significant stenosis. The patient was evaluated by Cardiology and Neurology. Event monitor has been arranged. The patient has been cleared by consultants for discharge. The patient has been cleared by consultants for discharge. FINAL DIAGNOSES: 1. Syncope, suspected cardiogenic. Orthostatic vitals were negative. 2. Hyperlipidemia. 3. Anxiety. 4. Obesity with a body mass index of 32.2. 5. Mild leukocytosis on admission, unlikely to be infectious. 6. Chronic kidney disease stage 2. SIGNIFICANT LABORATORY DATA: Fasting lipid profile showed cholesterol of 181, triglyceride 97, LDL 101, HDL 61. TSH was 1.8. Troponins were negative. Magnesium 1.9. Job ID: [id number]
== END 2019-03-26 13:39 | disposition home or self-care (01) ==
LOC: ERS 15:39 → 2SE 18:45 → EEVIPCON 18:45
PROVIDERS: ADMIT Internal Medicine; ATTEND Internal Medicine
DX: R55 Syncope and collapse (principal); E78.5 Hyperlipidemia, unspecified; E78.00 Pure hypercholesterolemia, unspecified; E66.9 Obesity, unspecified; N18.2 Chronic kidney disease, stage 2 (mild); F41.9 Anxiety disorder, unspecified; F32.9 Major depressive disorder, single episode, unspecified; D72.829 Elevated white blood cell count, unspecified; J45.909 Unspecified asthma, uncomplicated; M19.90 Unspecified osteoarthritis, unspecified site; F17.290 Nicotine dependence, other tobacco product, uncomplicated; G43.909 Migraine, unspecified, not intractable, without status migrainosus; Z68.32 Body mass index [BMI] 32.0-32.9, adult; Z79.899 Other long term (current) drug therapy
CPT/HCPCS: 36415; 70450; 71045; 80053; 80061; 80306; 81003; 81025; 83735; 84443; 84484; 85025; 93005; 93306; 93880; 94640; 96372; G0378; J1650; J7611